=== PATIENT | male | born 1950 | race Caucasian/White ===

== ENCOUNTER 2025-01-11 00:03 | Emergency (ER) | payer MEDICARE, OTHER, SELFPAY ==
[2025-01-11] VITALS (7 sets, daily range): BP systolic 142–155; BP diastolic 76–94; BMI 24.8
[2025-01-11 00:40] LABS: % Basophils 1.2 % (0-2); % Eosinophils 6.9 % (0-6); % Immature Granulocytes 0.4 % (0-0.5); % Lymphocytes 34.4 % (20.5-51.1); % Monocytes 13.8 % (1.7-9.3); % Neutrophils 43.3 % (42.2-75.2); Absolute Basophils 0.1 10^3/uL (0-0.2); Absolute Eosinophils 0.4 10^3/uL (0-0.7); Absolute Lymphocytes 1.8 10^3/uL (1.2-3.4); Absolute Monocytes 0.7 10^3/uL (0.1-0.6); Absolute Neutrophils 2.3 10^3/uL (1.4-6.5); Hematocrit 38.6 % (39.0-52.0); Hemoglobin 13.5 g/dL (13.0-18.0); Mean Corpuscular Volume 94.4 fL (80.0-94.0); Mean Platelet Volume 10.2 fL (7.4-10.4); Nucleated Red Blood Cells % 0 % (-); Platelet Count 230 10^3/uL (130-400); Red Blood Cell Count 4.09 10^6/uL (4.70-6.10); Red Cell Dist. Width 12.5 % (11.5-14.5); White Blood Cell Count 5.2 10^3/uL (4.8-10.8)
[2025-01-11 00:59] LABS: Troponin I < 0.012 ng/ml
[2025-01-11 01:03] LABS: ALT (SGPT) 28 U/L (0-50); AST (SGOT) 33 U/L (17-59); Albumin 4.7 g/dl (3.5-5.0); Alkaline Phosphatase 62 U/L (38-126); Blood Urea Nitrogen 14 mg/dl (9-20); Calcium 8.9 mg/dl (8.4-10.2); Carbon Dioxide 26 mmol/L (22-30); Chloride 95 mmol/L (98-107); Estimated Creatinine Clearance 102 ml/min; Glucose 90 mg/dl (70-99); Potassium 4.4 mmol/L (3.5-5.1); Sodium 130 mmol/L (135-145); Total Bilirubin 0.8 mg/dl (0.2-1.3); Total Protein 7.3 g/dl (6.3-8.2); eGFR > 60.00
--- NOTE | 2025-01-11 03:52 | ED.GENMED ---
History of Present Illness
General
Chief Complaint: Chest Pain
Source: patient and family
Exam Limitations: none
Time Seen by Provider: 01/11/25 03:51
Nursing documentation reviewed up to this point in time: agreed with
History of Present Illness
History of Present Illness:
Pleasant 74-year-old male presents to the emergency department with chest pain. He states that pain began while lying in bed and has subsided. He took 1 nitroglycerin with some relief of pain. Patient is due for a cardiac catheterization at 9 AM
today here in the hospital. Patient denies fever, chills, nausea or vomiting. Is accompanied by his . Patient denies any previous cardiac history. He states that he had a stress test which necessitated an outpatient catheterization which she
is scheduled for today.
Review of Systems
Review of Systems
Allergies reviewed?: Yes
All Other Systems: ROS reviewed and negative except as documented in HPI and ROS
Constitutional: Reports no symptoms
EENT: Reports no symptoms
Respiratory: Reports no symptoms
Cardiac: Reports chest pain
ABD/GI: Reports no symptoms
: Reports no symptoms
Musculoskeletal: Reports no symptoms
Skin: Reports no symptoms
Neurological: Reports no symptoms
Endocrine: Reports no symptoms
Hematologic/Lymphatic: Reports no symptoms
Psychiatric: Reports no symptoms
Phy Exam
General Physical Exam
General Presentation: well appearing and no apparent distress
General Skin: warm and dry
General Habitus: normal
General Mental: alert
General Hydration: appears well hydrated
ENT Exam
ENT Exam: EOMI, pharynx normal, neck supple and normocephalic
Eye Exam
Eye Exam: PERRL, cornea clear and conjunctiva normal
Cardiovascular Exam
Cardiovascular Exam: regular rate/rhythm, no edema, no murmur and normal peripheral pulses
Pulmonary Exam
Pulmonary Exam: lungs clear, no respiratory distress, no rales, no crackles, no rhonchi, no stridor, no wheezing and no cough
Gastrointestinal Exam
Gastrointestinal Exam: normal bowel sounds, non tender, soft, no organomegaly, no pulsatile mass and non distended
Neurological Exam
Neurological Exam: alert, oriented x3, no motor deficits and speech normal
Musculoskeletal Exam
Musculoskeletal Exam: full ROM and no edema
Skin Exam
Skin Exam: normal color, warm/dry, no rash and no petechia
Psychiatric Exam
Psychiatric Exam: normal mood/affect
Scores
Heart Score for Chest Pain Patients
STEMI patient?: No
History: Moderately Suspicious
ECG: Normal
Age: >/= 65 years
Risk Factors: 1 or 2 Risk Factors
Troponin: </= Normal Limit
Heart Score for Chest Pain Patients: 4
Heart Score Risk: 20.3% MACE over next 6 weeks
Course
Orders/Labs/Results
Orders:
Orders
01/11/25 00:04
Electrocardiogram (*1) Urgent
Reason for Study: Chest Pain
01/11/25 00:05
EKG- Treatment ONCE
01/11/25 00:27
CMP [Comprehensive Metabolic Panel] Urgent
Complete Blood Count/With Diff Urgent
Troponin I Urgent
01/11/25 03:51
EKG- Treatment ONCE
01/11/25 05:00
Electrocardiogram (*1) Urgent
Reason for Study: Chest Pain
01/11/25 05:35
Troponin I Urgent
Abnormal Lab Results
01/11/25
00:27
RBC 4.09 L 10^6/uL
(4.70-6.10)
Hct 38.6 L %
(39.0-52.0)
MCV 94.4 H fL
(80.0-94.0)
MCH 33.0 H pg
(27.0-31.0)
Absolute Monos (auto) 0.7 H 10^3/uL
(0.1-0.6)
Monocytes % 13.8 H %
(1.7-9.3)
Eosinophils % 6.9 H %
(0-6)
Sodium 130 L mmol/L
(135-145)
Chloride 95 L mmol/L
(98-107)
01/11/25 00:27
01/11/25 00:27
Vital Signs
Initial and Last Documented VS:
Initial Vital Signs
Temp Pulse Resp BP Pulse Ox
97.6 F 73 18 148/92 98
01/11/25 00:11 01/11/25 00:11 01/11/25 00:11 01/11/25 00:11 01/11/25 00:11
Last Documented Vital Signs
Temp Pulse Resp BP Pulse Ox
97.6 F 66 15 155/89 96
01/11/25 00:11 01/11/25 05:45 01/11/25 05:45 01/11/25 05:32 01/11/25 05:45
*Critical Care Note
Total Time (30-74mins, 75-104mins- exclusive of procedures): Not Applicable
ED Attending Note
-
Portions of this chart may have been created with voice recognition software.� Occasional wrong word or��sound alike� substitutions may have occurred due to the inherent limitations of voice recognition software.
Discharge Plan
Departure
Patient Disposition: Home (Routine Discharge)
Date of Disposition: 01/11/25
Time of Disposition: 06:29
Patient with high blood pressure during this ER visit?: No
Discharge Problem:
Chest pain
Instructions: Chest pain - Discharge instructions
Referrals:
Cassius Tony MD [Family Provider] -
Activity Restrictions/Additional Instructions:
Please go directly to the [facility] Development [facility] for your previously scheduled cardiac catheterization.
Interventions
Interventions:
*Risk Screen - Suicide Last Done: 01/11/25 00:11
*General Assessment Last Done: 01/11/25 00:11
*Neglect/Abuse Screening Last Done: 01/11/25 00:11
ED- Fall Risk Assessment Last Done: 01/11/25 00:30
*ED COVID-19 Vaccine History Last Done: 01/11/25 00:11
ED- Cardiac Assessment Last Done: 01/11/25 00:30
Discharge Date and Time
Print Language: ARABIC
[2025-01-11 06:11] LABS: Troponin I < 0.012 ng/ml
== END 2025-01-11 08:49 | disposition home or self-care (01) ==
LOC: EMR 00:03
PROVIDERS: Emergency Medicine; EMERGENCY PHYSICIAN Student in an Organized Health Care Education/Training Program; FAMILY PHYSICIAN Family Medicine
DX: R07.9 Chest pain, unspecified (principal)
CPT/HCPCS: 99282; 80053; 84484; 85025; 93005

== ENCOUNTER 2025-01-11 09:02 | Day surgery (SDC) | payer MEDICARE, OTHER, SELFPAY ==
[2025-01-11] VITALS (12 sets, daily range): BP systolic 125–165; BP diastolic 71–102; BMI 29.1
[2025-01-11] MEDS: NSS 292 ML IV (09:47)
[2025-01-11] MEDS: LOW STRENGTH ASPIRIN 81 MG PO (09:50)
--- NOTE | 2025-01-11 12:40 | ITS.CL.ANGIO ---
[facility] - Angioplasty
Angioplasty
Procedure Report:
CARDIAC CATHETERIZATION REPORT
Date of Procedure: 01/11/2025
Referring: Lawrence Holt D.O.
INDICATION: Accelerating angina, unstable angina with recent ER visit for resting chest pain, abnormal stress test.
PROCEDURE:
1. Left heart catheterization.
2. Coronary angiography
3. Successful PCI of the mid RCA.
A total of 45 minutes of procedural/moderate sedation was utilized. An independent medical assistant internal medicine was present to assist with and help manage the patient's level of consciousness and physiologic status.
ACCESS:
1. Sick Haitian right rate artery using a modified Seldinger technique.
CATHETERS:
1. 5 Haitian JR4.
2. 5 Haitian JL 3.5.
3. 6 Haitian JR4 guiding catheter.
HEMODYNAMIC DATA
Weight (kg): 97.0
AO (s/d/x, mmHg): 142/83/109
LV (s/x mmHg): 144/8
LEFT VENTRICULOGRAPHY: Not performed.
CORONARY ANGIOGRAPHY
Dominance: Right.
Left Main: Large size, trifurcating vessel. There is no coronary artery disease.
LAD: Normal size vessel giving rise to several small diagonals before wrapping around the apex. There are minor luminal irregularities in the body of the vessel. There is a 70% lesion in the apical LAD.
Ramus: Medium size vessel with diffuse, mild luminal irregularities throughout.
Circumflex: Normal size, nondominant vessel giving rise to 1 significant obtuse marginal. The obtuse marginal arises very high on the circumflex and supplies the majority of the lateral wall. There is a 70% lesion in the proximal third of the
obtuse marginal.
RCA: Large size, dominant vessel with a significant posterolateral arcade. There is a 20% lesion in the proximal margin of the RCA. There is a culprit, 90% lesion in the mid RCA.
INTERVENTION(S)
1. Successful PCI of the 90% mid RCA lesion ([employer]tronic [place] Tensas 4.0 x 18 YASMINE, postdilated with a 4.0 NC balloon) with reduction in stenosis to 0%, maintaining MAHESH-3 flow.
Narrative:
The decision was made to proceed with percutaneous coronary intervention. The diagnostic catheter was removed over a wire and a 6Fr JR4 guiding catheter was advanced to the aortic root and seated in the right coronary artery. Additional heparin was
given and a Power Turn Flex wire was advanced into the distal RPL. The 90% mid RCA lesion was predilated with a 2.0 x 12 semi-compliant balloon to 12 verónica. The semi-compliant balloon was removed and a Medtronic [place] Tensas 4.0 x 18 drug-eluting
stent was advanced. The stent was deployed at 12 atmospheres. The stent balloon was removed. A 4.0 x 12 noncompliant balloon was advanced into the stent and the stent was postdilated to 14 atmospheres in the distal margin and 18 verónica in the proximal
margin angiography was performed in orthogonal views, confirming good stent expansion and an excellent angiographic result. The coronary wire was withdrawn and the guide was disengaged from the artery. The catheter was removed over a standard
J-wire.
Closure Device: Vascular band.
Radiation (mGy): 471.24
DAP (cm2.Gy): 37.7305
Fluoroscopy time (minutes): 5.6
CONCLUSIONS
1. Right dominant circulation with luminal irregularities and mild to moderate disease in the body of the LAD, followed by a 70% lesion in the apex, luminal irregularities in the ramus, a 70% lesion in the high OM1, a 20% lesion in the proximal
margin of the RCA and a culprit, 90% lesion in the mid RCA status post successful PCI ([employer]tronic [place] Tensas 4.0 x 18 YASMINE, postdilated with a 4.0 NC balloon) with reduction in stenosis to 0%, maintaining MAHESH-3 flow.
2. Normal filling pressures (LVEDP = 8 mmHg at 97.0 kg).
RECOMMENDATIONS:
1. Expectant management after cardiac catheterization via right radial approach.
2. Limited weight bearing on the right for one week.
3. Dual antiplatelet therapy with aspirin and clopidogrel for at least 12 months, followed by aspirin indefinitely.
4. Aggressive secondary prevention with high-dose, high potency statin. Goal LDL <55.
5. OMT/GDMT as hemodynamics will tolerate.
6. Plan for staged IFR with ad hoc PCI of the 70% circumflex lesion in 1 to 2 weeks.
7. Referral to cardiac rehab.
Copy to: Lawrence Holt D.O., Cassius Tony M.D.
Daniel Barnes DO, FACC, FACP
[2025-01-11] MEDS: NSS 1000 IV (13:21)
[2025-01-11 14:34] LABS: ACT-LR - POC > 397 Seconds (116-155)
--- NOTE | 2025-01-11 14:55 | W.PN.UPDATE ---
Update Note
Progress Note Update
74 yo WM s/p PCI RCA (same day). He denies cp, sob, clarisa diet, EKG SR no ST changes, R rad site TR band in place, no HT or bleeding. He will be on DAPT ASA/Plavix. We will switch his statin to high intensity from pravastatin to rosuvastatin 20mg. He
has residual 70% LCx stenosis and will return on 01/25 for staged PCI. Cardiac rehab c/s. He will f/u Dr. Holt in 2 weeks after his next intervention. He is for d/c home after 530pm.
CONCLUSIONS
1. Right dominant circulation with luminal irregularities and mild to moderate disease in the body of the LAD, followed by a 70% lesion in the apex, luminal irregularities in the ramus, a 70% lesion in the high OM1, a 20% lesion in the proximal
margin of the RCA and a culprit, 90% lesion in the mid RCA status post successful PCI (Medtronic [place] Bolt 4.0 x 18 YASMINE, postdilated with a 4.0 NC balloon) with reduction in stenosis to 0%, maintaining MAHESH-3 flow.
2. Normal filling pressures (LVEDP = 8 mmHg at 97.0 kg).
RECOMMENDATIONS:
1. Expectant management after cardiac catheterization via right radial approach.
2. Limited weight bearing on the right for one week.
3. Dual antiplatelet therapy with aspirin and clopidogrel for at least 12 months, followed by aspirin indefinitely.
4. Aggressive secondary prevention with high-dose, high potency statin. Goal LDL <55.
5. OMT/GDMT as hemodynamics will tolerate.
6. Plan for staged IFR with ad hoc PCI of the 70% circumflex lesion in 1 to 2 weeks.
7. Referral to cardiac rehab.
Copy to: Lawrence Holt D.O., Cassius Tony M.D.
== END 2025-01-11 17:31 | disposition home or self-care (01) ==
LOC: CATH 09:02
PROVIDERS: ATTENDING PHYSICIAN Internal Medicine Cardiovascular Disease; FAMILY PHYSICIAN Family Medicine; OTHER PHYSICIAN Internal Medicine Cardiovascular Disease
DX: I25.110 Atherosclerotic heart disease of native coronary artery with unstable angina pectoris (principal); Z79.02 Long term (current) use of antithrombotics/antiplatelets; Z79.82 Long term (current) use of aspirin; Z79.899 Other long term (current) drug therapy
CPT/HCPCS: 80053; 84484; 85025; 85347; 93005; 93458; 99152; 99153; C1725; C1874; C1894; C9600; Q9967

== ENCOUNTER 2025-01-25 12:14 | Day surgery (SDC) | payer MEDICARE, OTHER, SELFPAY ==
[2025-01-25] VITALS (11 sets, daily range): BP systolic 128–172; BP diastolic 69–127; BMI 23.7
[2025-01-25] MEDS: NSS 238 ML IV (13:47)
[2025-01-25 13:48] LABS: Hematocrit 38.4 % (39.0-52.0); Hemoglobin 13.4 g/dL (13.0-18.0); Mean Corp Hgb Conc. 34.9 g/dL (33.0-37.0); Mean Corpuscular Hgb 32.6 pg (27.0-31.0); Mean Corpuscular Volume 93.4 fL (80.0-94.0); Mean Platelet Volume 9.8 fL (7.4-10.4); Platelet Count 231 10^3/uL (130-400); Red Blood Cell Count 4.11 10^6/uL (4.70-6.10); Red Cell Dist. Width 12.6 % (11.5-14.5); White Blood Cell Count 4.6 10^3/uL (4.8-10.8)
[2025-01-25 14:01] LABS: Blood Urea Nitrogen 11 mg/dl (9-20); Calcium 8.6 mg/dl (8.4-10.2); Carbon Dioxide 26 mmol/L (22-30); Chloride 94 mmol/L (98-107); Estimated Creatinine Clearance 102 ml/min; Glucose 91 mg/dl (70-99); Potassium 4.6 mmol/L (3.5-5.1); Sodium 125 mmol/L (135-145); eGFR > 60.00
--- NOTE | 2025-01-25 15:11 | ITS.CL.CATH ---
[facility] - Catheterization
Cardiac Catheterization
Procedure Report:
CARDIAC CATHETERIZATION REPORT
Date of Procedure: 01/25/2025
Referring: Daniel Barnes D.O.
INDICATION: Staged evaluation after prior non-ST ovation myocardial infarction.
PROCEDURE:
1. Left-sided coronary angiography.
2. Successful IFR of the 70% OM1 lesion.
A total of 30 minutes of procedural/moderate sedation was utilized. An independent medical sociologist was present to assist with and help manage the patient's level of consciousness and physiologic status.
ACCESS:
1. 6 Divehi right radial artery using a modified Seldinger technique.
CATHETERS:
1. 6 Divehi EBU 3.5.
HEMODYNAMIC DATA
Weight (kg): 97.1
AO (s/d/x, mmHg): 142/85/110
LV (s/x mmHg): Not obtained.
LEFT VENTRICULOGRAPHY: Not performed.
CORONARY ANGIOGRAPHY
Dominance: Right.
Left Main: Large size, trifurcating vessel. There is no coronary artery disease.
LAD: Normal size vessel giving rise to several small diagonals before wrapping around the apex. There are minor luminal irregularities in the body of the vessel. There is a 70% lesion in the apical LAD.
Ramus: Medium size vessel with diffuse, mild luminal irregularities throughout.
Circumflex: Normal size, nondominant vessel giving rise to 1 significant obtuse marginal. The obtuse marginal arises high on the circumflex and supplies the majority of the lateral wall. There is a 70% lesion in the proximal third of OM1.
RCA: Not injected. Known to be a large size, dominant vessel with a large posterolateral arcade and a stent in the mid vessel.
INTERVENTION(S)
1. Successful IFR of the 70% OM1 lesion, demonstrating nonocclusive disease (IFR = 0.93).
Narrative:
The decision was made to perform physiologic testing. The 6 Divehi EBU 3.5 guiding catheter was advanced into the ascending aorta and seated in the left main coronary artery. Additional heparin was given to obtain an ACT greater than 250 seconds.
An iFR wire was zeroed outside of the body, then inserted into the guiding sheath. The wire was advanced and the transducer was normalized just outside of the guiding catheter tip. The wire was advanced into the distal OM1. Three iFR measurements
were taken. The lesion was determined to be nonocclusive (0.93).
The wire was withdrawn showing fidelity of measurement on pullback. The wire was removed and the catheter was disengaged.
Closure Device: Vascular band.
Radiation (mGy): 163.87
DAP (cm2.Gy): 12.3011
Fluoroscopy time (minutes): 2.9
CONCLUSIONS
1. Right dominant circulation with prior PCI to the mid RCA, a 70% lesion in the apical LAD and a nonocclusive 70% lesion in OM1 (IFR = 0.93).
RECOMMENDATIONS:
1. Expectant management after cardiac catheterization via right radial approach.
2. Limited weight bearing on the right wrist for one week.
3. Continue dual antiplatelet therapy with aspirin and clopidogrel for at least 12 months, followed by aspirin indefinitely.
4. Aggressive secondary prevention with high-dose, high potency statin. Goal LDL <55.
5. OMT/GDMT as hemodynamics and symptoms dictate.
6. Referral to cardiac rehab.
Copy to: Lawrence Holt D.O., Cassius Tony M.D.
Daniel Barnes DO, FACC, FACP
[2025-01-25 15:46] LABS: ACT-LR - POC > 397 Seconds (116-155)
[2025-01-25] MEDS: NSS 1000 IV (18:22)
== END 2025-01-25 19:00 | disposition home or self-care (01) ==
LOC: CATH 12:14
PROVIDERS: ATTENDING PHYSICIAN Internal Medicine Cardiovascular Disease; FAMILY PHYSICIAN Family Medicine; REFERRING PHYSICIAN Internal Medicine Cardiovascular Disease
DX: I25.10 Atherosclerotic heart disease of native coronary artery without angina pectoris (principal); Z95.5 Presence of coronary angioplasty implant and graft; Z79.02 Long term (current) use of antithrombotics/antiplatelets; Z79.82 Long term (current) use of aspirin; I21.4 Non-ST elevation (NSTEMI) myocardial infarction; Z79.899 Other long term (current) drug therapy
CPT/HCPCS: 93799; 80048; 85027; 85347; 93454; 99152; 99153; Q9967

== ENCOUNTER 2025-03-28 13:21 | Outpatient (RCR) | payer MEDICARE, OTHER, SELFPAY ==
[2025-01-25 11:27] VITALS: BMI 24.2
[2025-01-25 12:38] VITALS: BP 169/93
== END 2025-03-28 23:59 | disposition home or self-care (01) ==
LOC: CRHB 13:21
PROVIDERS: ATTENDING PHYSICIAN Internal Medicine Cardiovascular Disease; FAMILY PHYSICIAN Family Medicine
DX: I25.10 Atherosclerotic heart disease of native coronary artery without angina pectoris (principal); Z95.5 Presence of coronary angioplasty implant and graft
CPT/HCPCS: G0422; G0423

== ENCOUNTER 2025-03-30 08:31 | Outpatient (RCR) | payer MEDICARE, OTHER, SELFPAY | END 2025-04-06 16:24 | disposition other institution (70) | LOC: CRHB 08:31 | PROVIDERS: ATTENDING PHYSICIAN Internal Medicine Cardiovascular Disease; FAMILY PHYSICIAN Family Medicine | DX: I25.10 Atherosclerotic heart disease of native coronary artery without angina pectoris (principal); Z95.5 Presence of coronary angioplasty implant and graft | CPT/HCPCS: 93797; 93798 ==

== ENCOUNTER 2025-08-03 20:35 | Emergency (ER) | payer MEDICARE, OTHER, SELFPAY ==
[2025-08-03 20:38] VITALS: BP 159/90
[2025-08-03] MEDS: PHENYLEPHRINE 0.25% 2 SPRAY NASAL (23:18)
--- NOTE | 2025-08-04 00:39 | ED.GENMED ---
History of Present Illness
General
Chief Complaint: Nose Bleed
Source: patient and spouse
Exam Limitations: none
Time Seen by Provider: 08/03/25 23:05
Nursing documentation reviewed up to this point in time: agreed with
History of Present Illness
History of Present Illness:
75-year-old male presenting to the emergency department today with concerns of nosebleed intermittently over the past few hours prior to arrival. He is on Plavix with a history of heart disease. Denies any trauma did ride his bike for a long
period of time and seemingly irritated his nose
Review of Systems
Review of Systems
Allergies reviewed?: Yes
All Other Systems: ROS reviewed and negative except as documented in HPI and ROS
Phy Exam
Physical Exam
Physical Exam:
GENERAL: Alert , in no apparent distress
EYE: pupils equal and reactive
NECK: Supple, no significant adenopathy.
ENT: Patient does not have a nasal septum, no active bleeding on my assessment o/p clr, mmm.
CARDIAC: Regular rate and rhythm .
LUNGS: Clear breath sounds bilaterally, no acute respiratory distress, no wheezes/rales/rhonchi
ABDOMEN: Soft, without focal tenderness, no r/g, no cvat
NEUROLOGICAL: Alert and oriented, no focal neuro deficits
SKIN: Warm and dry, skin intact.
MUSCULOSKELETAL: No edema, well perfused.
PSYCH: Normal and appropriate interaction.
Course
Orders/Labs/Results
Orders:
Orders
08/03/25 23:18
Oxymetazoline HCl [Afrin Nasal [place]] 30 sprays .ROUTE .STK-MED ONE
Phenylephrine HCl (Mild) [Rip-Synephrine Nasal [place] 0.25%] See Dose Instructions NASAL ONCE ONE
Vital Signs
Initial and Last Documented VS:
Initial Vital Signs
Temp Pulse Resp BP Pulse Ox
97.8 F 79 20 159/90 100
08/03/25 20:38 08/03/25 20:38 08/03/25 20:38 08/03/25 20:38 08/03/25 20:38
Last Documented Vital Signs
Temp Pulse Resp BP Pulse Ox
97.8 F 79 20 159/90 100
08/03/25 20:38 08/03/25 20:38 08/03/25 20:38 08/03/25 20:38 08/04/25 00:39
Procedures
Nosebleed
Drug treatment: Neosynephrine
Treatment: local pressure applied
Post treatment bleeding: none- good control
MDM/Problems Addressed
MDM/Problems Addressed:
75-year-old male presenting to the emergency department with concerns of intermittent nosebleed over the past few hours. No specific trauma. Here Afrin was used and pressure was applied and reassessment there was no ongoing bleeding. No evidence
of any emergent bleed at this time vital signs stable for outpatient management. Return precautions given.
*Pulse Oximetry
SaO2: 100
Oxygen Mode of Delivery: Room air
Patient hypoxic: no (100)
*Critical Care Note
Total Time (30-74mins, 75-104mins- exclusive of procedures): Not Applicable
ED Attending Note
-
Portions of this chart may have been created with voice recognition software.� Occasional wrong word or��sound alike� substitutions may have occurred due to the inherent limitations of voice recognition software.
Discharge Plan
Departure
Patient Disposition: Home (Routine Discharge)
Date of Disposition: 08/04/25
Time of Disposition: 00:39
Patient with high blood pressure during this ER visit?: No
Condition: Good
Covid-19: Not Applicable
Discharge Problem:
Acute anterior epistaxis
Instructions: Nosebleeds (DC)
Prescriptions:
No Action
lisinopril 10 mg Tablet
10 mg PO HS
nitroglycerin 0.4 mg Tablet, Sublingual
0.4 mg SUBLINGUAL Q5-15M PRN (Reason: chest re)
Rx Instructions:
~2 weeks ago
aspirin 81 mg Tablet
81 mg PO DAILY
clopidogrel 75 mg tablet
75 mg PO DAILY Qty: 90 10RF
rosuvastatin 20 mg tablet
20 mg PO DAILY Qty: 90 5RF
metoprolol succinate 25 mg Tablet Extended Release 24 Hr
25 mg PO DAILY
Referrals:
Cassius Tony MD [Family Provider, [facility]]
Activity Restrictions/Additional Instructions:
You came to the emergency department today with concerns of a nosebleed. This was controlled here after receiving nasal spray and applying pressure. Please follow closely as an outpatient for any ongoing symptoms. Return for any worsening, new or
concerning symptoms.
Interventions
Interventions:
*Risk Screen - Suicide Last Done: 08/03/25 20:38
*General Assessment Last Done: 08/03/25 20:38
*Neglect/Abuse Screening Last Done: 08/03/25 20:38
*ED- Fall Risk Assessment Last Done: 08/04/25 00:41
*ED COVID-19 Vaccine History Last Done: 08/03/25 20:38
ED-EENT Assessment Last Done: 08/03/25 23:30
Discharge Date and Time
Print Language: EGYPTIAN
== END 2025-08-04 00:40 | disposition home or self-care (01) ==
LOC: EMR 20:35
PROVIDERS: EMERGENCY PHYSICIAN Student in an Organized Health Care Education/Training Program; FAMILY PHYSICIAN Family Medicine
DX: R04.0 Epistaxis (principal); I51.9 Heart disease, unspecified; Z79.02 Long term (current) use of antithrombotics/antiplatelets
CPT/HCPCS: 99283